=== PATIENT | female | born 1995 ===

== ENCOUNTER 2018-09-29 15:19 | Outpatient (CLI) | payer OTHER ==
[~2018-09-29] VITALS: Ht 154.9 cm; Wt 81.6 kg
== END 2018-09-29 15:40 | disposition home or self-care (01) ==
LOC: OFIC 805 15:19
DX: R07.0 Pain in throat (principal); J03.80 Acute tonsillitis due to other specified organisms; J35.1 Hypertrophy of tonsils

== ENCOUNTER 2018-09-29 15:58 | Outpatient (CLI) | payer OTHER | END 2018-09-29 16:15 | disposition home or self-care (01) | LOC: LAB 15:58 | DX: J03.80 Acute tonsillitis due to other specified organisms (principal) ==

== ENCOUNTER 2018-10-03 16:00 | Outpatient (CLI) | payer OTHER ==
[~2018-10-03] VITALS: Ht 152.4 cm; Wt 81.6 kg
== END 2018-10-03 16:15 | disposition home or self-care (01) ==
LOC: OFIC 805 16:00
DX: J03.90 Acute tonsillitis, unspecified (principal); H66.93 Otitis media, unspecified, bilateral